=== PATIENT | female | born 1935 | race Two or more races ===

== ENCOUNTER 2016-12-29 15:39 | Emergency (ER) | payer MEDICAID ==
[~2016-12-29] VITALS: Ht 142.2 cm; Wt 59.0 kg
[~2016-12-29 15:39] MED LIST: ACCUPRIL10 MG ORAL; ACTONEL35 MG ORAL; BENADRYL25 MG ORAL; HYDROCHLOROTHIA25 MG ORAL; LISINOPRIL10 MG ORAL; PREDNISONE20 MG ORAL; TYLENOL650 MG/20. ORAL
[2016-12-29 16:01] VITALS: BP 184/82
[2016-12-29] MEDS ORDERED: Enalaprilat 1.25mg/ml Inj IV ONE (16:15)
[2016-12-29 17:16] LABS: BASOPHILS % (AUTO) 0.8 % (0.0-2.0); EOSINOPHILS % (AUTO) 0.9 % (0.0-3.0); MEAN CORPUSCULAR HEMOGLOBIN 32.5 PG (27.0-31.0); MEAN CORPUSCULAR VOLUME 90 FL (80-99); MEAN PLATELET VOLUME 7.5 FL (6.5-10.1); MONOCYTES % (AUTO) 4.4 % (1.0-10.0); NEUTROPHILS % (AUTO) 70.9 % (45.0-75.0); PLATELET COUNT 221 K/UL (150-450); RED BLOOD COUNT 4.03 M/UL (4.20-5.40); RED CELL DISTRIBUTION WIDTH 11.2 % (11.6-14.8)
[2016-12-29 17:41] LABS: TROPONIN I < 0.30 ng/mL (<=0.30)
[2016-12-29 17:46] LABS: ALANINE AMINOTRANSFERASE 15 U/L (3-33); ALBUMIN/GLOBULIN RATIO 1.4 (1.0-2.7); ANION GAP 13 (5-15); ASPARTATE AMINO TRANSFERASE 17 U/L (5-40); CALCIUM 9.5 mg/dL (8.6-10.2); CARBON DIOXIDE 28 mEQ/L (20-30); CHLORIDE 100 mEQ/L (98-107); CREATININE 0.7 mg/dL (0.5-0.9); HEMOLYSIS 13; POTASSIUM 3.8 mEQ/L (3.4-4.9); SODIUM 141 mEQ/L (135-145); TOTAL PROTEIN 6.8 g/dL (6.6-8.7)
[2016-12-29 17:56] LABS: CKMB 3.2 ng/mL (< 3.8)
[2016-12-29] MEDS ORDERED: HYDROCHLOROTHIA50 MG ORAL (18:19)
[2016-12-29 18:39] VITALS: BP 130/92
[2016-12-29 18:41] VITALS: BP 130/92
--- NOTE | 2016-12-29 21:46 | Emergency Room Report ---
History of Present Illness General Chief Complaint: Hypertension Source: Patient Present Illness HPI The patient is an 81-year-old female with a history of hypertension presenting for hypertension. The patient states that she usually takes hydrochlorothiazide which helps. She took her blood pressure this morning which was approximately 170/110 and then took her blood pressure medication and presented to the ER. She states that she has been taking her blood pressure medication as directed. She has not seen her PMD recently. She does admit to mild nausea and dizziness but denies any other symptoms including chest pain, shortness of breath, abdominal pain, weakness, diaphoresis, headache Allergies: Coded Allergies: No Known Allergies (Verified Allergy, Unknown, 09/13/07) Patient History Past Medical History: see triage record, HTN Pertinent Family History: none Reviewed Nursing Documentation: PMH: Agreed, PSxH: Agreed Nursing Documentation-PMH Past Medical History: No Stated History Hx Cardiac Problems: Yes Hx Hypertension: Yes Hx Asthma: No - osteoporosis Hx Cancer: No Hx Gastrointestinal Problems: No Hx Neurological Problems: No Review of Systems All Other Systems: negative except mentioned in HPI Physical Exam Vital Signs Date Time Temp Pulse Resp B/P Pulse Ox O2 Delivery O2 Flow Rate FiO2 12/29/16 15:52 98.1 62 16 171/77 97 Room Air Sp02 EP Interpretation: reviewed, normal General Appearance: no apparent distress, alert, GCS 15, non-toxic Head: normocephalic, atraumatic Eyes: bilateral eye PERRL, bilateral eye normal inspection ENT: hearing grossly normal, normal pharynx, no angioedema, normal voice Neck: full range of motion, supple/symm/no masses Respiratory: chest non-tender, lungs clear, normal breath sounds, speaking full sentences Cardiovascular #1: regular rate, rhythm, no edema Gastrointestinal: normal bowel sounds, non tender, soft, non-distended, no guarding, no rebound Genitourinary: normal inspection, no CVA tenderness Musculoskeletal: back normal, gait/station normal, normal range of motion, non- tender Neurologic: alert, oriented x3, responsive, motor strength/tone normal, sensory intact, normal gait, speech normal Psychiatric: judgement/insight normal, memory normal, mood/affect normal, no suicidal/homicidal ideation Skin: normal color, no rash, warm/dry, well hydrated Lymphatic: no adenopathy Medical Decision Making PA Attestation Dr. Vora is my supervising physician. Patient management was discussed with my supervising physician Diagnostic Impression: Primary Impression: Hypertension Qualified Codes: I15.9 - Secondary hypertension, unspecified ER Course The patient is an 81-year-old female with a history of hypertension presenting for hypertension. Differential diagnosis include but not limited to ACS, PE,CHF, pneumonia, gastritis, hypertensive urgency/emergency PE: Pt is initially hypertensive but all vitals WNL at time of DC PERRL. EOMI. Normal mentation. RRR. No MRG Lungs CTA bilat Abdomen: Normal appearance. Non distended. No ecchymosis. Normal BS. Non TTP. No McBurney point tenderness. No guarding. Skin is warm and dry, no rashes. EKG and CXR unremarkable. Labwork unremarkable. Pt is given vasotec and BP is now within normal limits. She will be DC'ed and is told she needs to keep a BP journal and see her PMD DENISE for possible HTN medication change. ER precautions given Laboratory Tests Test 12/29/16 16:50 White Blood Count 6.0 K/UL (4.8-10.8) Red Blood Count 4.03 M/UL (4.20-5.40) L Hemoglobin 13.1 G/DL (12.0-16.0) Hematocrit 36.4 % (37.0-47.0) L Mean Corpuscular Volume 90 FL (80-99) Mean Corpuscular Hemoglobin 32.5 PG (27.0-31.0) H Mean Corpuscular Hemoglobin Concent 36.0 G/DL (32.0-36.0) Red Cell Distribution Width 11.2 % (11.6-14.8) L Platelet Count 221 K/UL (150-450) Mean Platelet Volume 7.5 FL (6.5-10.1) Neutrophils (%) (Auto) 70.9 % (45.0-75.0) Lymphocytes (%) (Auto) 23.0 % (20.0-45.0) Monocytes (%) (Auto) 4.4 % (1.0-10.0) Eosinophils (%) (Auto) 0.9 % (0.0-3.0) Basophils (%) (Auto) 0.8 % (0.0-2.0) Sodium Level 141 mEQ/L (135-145) Potassium Level 3.8 mEQ/L (3.4-4.9) Chloride Level 100 mEQ/L (98-107) Carbon Dioxide Level 28 mEQ/L (20-30) Anion Gap 13 (5-15) Blood Urea Nitrogen 14 mg/dL (7-23) Creatinine 0.7 mg/dL (0.5-0.9) Estimate Glomerular Filtration Rate mL/min (>60) Glucose Level 111 mg/dL (74-106) H Calcium Level 9.5 mg/dL (8.6-10.2) Total Bilirubin 0.4 mg/dL (0.0-1.2) Aspartate Amino Transferase (AST) 17 U/L (5-40) Alanine Aminotransferase (ALT) 15 U/L (3-33) Alkaline Phosphatase 52 U/L (35-104) Total Creatine Kinase 44 U/L (26-140) Creatine Kinase MB 3.2 ng/mL (< 3.8) Creatine Kinase MB Relative Index 7.2 Troponin I < 0.30 ng/mL (<=0.30) Total Protein 6.8 g/dL (6.6-8.7) Albumin 4.0 g/dL (3.5-5.2) Globulin 2.8 g/dL Albumin/Globulin Ratio 1.4 (1.0-2.7) Lab Results Impression CBC, CMP, CKMB, and troponin all unremarkable. EKG Diagnostic Results EP Interpretation: NSR. No acute changes Rate: normal - 84 Rhythm: NSR ST Segments: no acute changes ASA given to the pt in ED: No PA Scribe Text EKG was reviewed and read with my supervising physician. No acute ST segment changes are seen. Normal rate and rhythm. No acute changes. Chest X-Ray Diagnostic Results EP Interpretation: Yes Findings: no consolidation, no effusion, no pneumothorax Number of Views: 1 PA Scribe Text I am acting as scribe for my supervising physician. My supervising physician's interpretation of the chest xrays are there is no consolidation, no effusion, no acute cardiopulmonary disease, no pneumothorax Last Vital Signs Date Time Temp Pulse Resp B/P Pulse Ox O2 Delivery O2 Flow Rate FiO2 12/29/16 18:41 67 18 130/92 99 Room Air 12/29/16 18:39 97.8 Status: improved Disposition: HOME, SELF-CARE Condition: Improved Scripts Hydrochlorothiazide* (HYDROCHLOROTHIAZIDE*) 50 Mg Tablet 50 MG ORAL DAILY, #30 TAB Prov: PAWAN DAVIS 12/29/16 Referrals: NON PHYSICIAN (PCP) Patient Instructions: Managing Your High Blood Pressure Additional Instructions: I discussed my findings with the patient. All questions and concerns have been answered. Treatment and medication compliance have been addressed. I advised the patient that they need to follow up with PMD in 3-5 days. Return to ED if symptoms worsen, new symptoms arise, or if needed for any reason. Patient verbalized understanding of discharge instructions. PAWAN DAVIS Dec 29, 2016 21:46
--- NOTE | 2016-12-30 09:41 | Diagnostic Imaging Report ---
Indication: DIZZY Technique: One view of the chest Comparison: 09/06/2015 Findings: Lungs and pleural spaces are clear. Heart size is normal. Inspiration is suboptimal. No significant change Impression: No acute process
== END 2016-12-29 18:46 | disposition home or self-care (01) ==
LOC: EMR 18:01
DX: I15.9 Secondary hypertension, unspecified (principal); M81.0 Age-related osteoporosis without current pathological fracture
CPT/HCPCS: 36415; 71010; 80053; 82550; 82553; 84484; 85025; 93005; 99283

== ENCOUNTER 2018-02-18 11:12 | Emergency (ER) | payer MEDICAID ==
[~2018-02-18] VITALS: Ht 147.3 cm; Wt 49.4 kg
[~2018-02-18 11:12] MED LIST changes: +HYDROCHLOROTHIA50 MG ORAL
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
[2018-02-18 12:00] LABS: BASOPHILS % (AUTO) 0.6 % (0.0-2.0); HEMATOCRIT 35.6 % (37.0-47.0); HEMOGLOBIN 11.8 G/DL (12.0-16.0); LYMPHOCYTES % (AUTO) 14.2 % (20.0-45.0); MEAN CORPUSCULAR VOLUME 91 FL (80-99); MONOCYTES % (AUTO) 4.6 % (1.0-10.0); NEUTROPHILS % (AUTO) 79.7 % (45.0-75.0); PLATELET COUNT 264 K/UL (150-450); RED BLOOD COUNT 3.92 M/UL (4.20-5.40); RED CELL DISTRIBUTION WIDTH 10.8 % (11.6-14.8); WHITE BLOOD COUNT 8.5 K/UL (4.8-10.8)
[2018-02-18 12:10] LABS: ANION GAP 9 mmol/L (5-15); BLOOD UREA NITROGEN 28 mg/dL (7-18); CALCIUM 9.1 MG/DL (8.5-10.1); CARBON DIOXIDE 27 MMOL/L (21-32); CHLORIDE 101 MMOL/L (98-107); CREATININE 0.8 MG/DL (0.55-1.30); POTASSIUM 4.4 MMOL/L (3.5-5.1); SODIUM 137 MMOL/L (136-145)
[2018-02-18 13:00] VITALS: BP 143/63
--- NOTE | 2018-02-18 13:11 | Diagnostic Imaging Report ---
Indications: Pain Technique: Spiral acquisitions obtained through the brain. Angled axial and coronal 5 x 5 mm slices were reconstructed. Total dose length product 1567.08 mGycm. CTDI vol(s) 70.38,10.94 mGy. Dose reduction achieved using automated exposure control Comparison: 01/01/2014 Findings: There is a high parietal scalp contusion just to the right of midline. Again demonstrated is age-related enlargement of the ventricles and extra-axial CSF spaces. No acute intracranial hemorrhage or edema. No mass effect or midline shift. Normal thibodeaux-white differentiation. There is evidence of prior bilateral cataract surgery. There is a right maxillary sinus air-fluid level. Impression: Chronic and age-related changes. Evidence of high parietal scalp contusion Negative for acute intracranial bleed or mass effect The CT scanner at [facility] is accredited by the [employer] and the scans are performed using protocols designed to limit radiation exposure to as low as reasonably achievable to attain images of sufficient resolution adequate for diagnostic evaluation.
[2018-02-18] MEDS ORDERED: TYLENOL325 MG ORAL (13:20)
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
[2018-02-18 13:29] VITALS: BP 143/63
[2018-02-19] MEDS ORDERED: BACTROBAN CR1 APPLIC TOPIC (17:30)
== END 2018-02-18 13:30 | disposition home or self-care (01) ==
LOC: EMR 11:43
DX: S09.90XA Unspecified injury of head, initial encounter (principal); S01.01XA Laceration without foreign body of scalp, initial encounter; V03.99XA Pedestrian with other conveyance injured in collision with car, pick-up truck or van, unspecified whether traffic or nontraffic accident, initial encounter; Y92.410 Unspecified street and highway as the place of occurrence of the external cause; I10 Essential (primary) hypertension; M81.0 Age-related osteoporosis without current pathological fracture
CPT/HCPCS: 12002; 36415; 70450; 72125; 80048; 85025; 99284; Z7502

== ENCOUNTER 2018-02-19 16:02 | Emergency (ER) | payer MEDICAID ==
[~2018-02-19] VITALS: Ht 154.9 cm; Wt 49.4 kg
[~2018-02-19 16:02] MED LIST changes: +TYLENOL325 MG ORAL
[2018-02-19 17:17] VITALS: BP 133/72
--- NOTE | 2018-02-19 17:27 | Emergency Room Report ---
History of Present Illness General Chief Complaint: Wound Recheck/Suture Removal Present Illness HPI 83 y.o. F with no sig pmhx, here for wound check post staple placement on scalp yesterday. pt reports bleeding from wound, continous CHOUDHARY(no worse than yesterday) . pt denies picking on the carlos alberto, combing over the carlos alberto. denies dizziness, loc, vision changes, neck pain, sob, palpitaiton, cp. reports the bleeding has been minimal Allergies: Coded Allergies: No Known Allergies (Verified , 09/13/07) Patient History Limited by: language barrier Past Medical History: see triage record Past Surgical History: none Pertinent Family History: none Now: No Immunizations: UTD Reviewed Nursing Documentation: PMH: Agreed; PSxH: Agreed Nursing Documentation-PMH Hx Cardiac Problems: Yes Hx Hypertension: Yes Hx Asthma: No - osteoporosis Hx Cancer: No Hx Gastrointestinal Problems: No Hx Neurological Problems: No Review of Systems All Other Systems: negative except mentioned in HPI Physical Exam Vital Signs Date Time Temp Pulse Resp B/P (MAP) Pulse Ox O2 Delivery O2 Flow Rate FiO2 02/19/18 16:09 97.7 71 16 133/72 95 Room Air 97.7 Sp02 EP Interpretation: reviewed, normal General Appearance: normal inspection, well appearing Head: normocephalic, other - 3 carlos alberto on posterior scalp one staple dislodged , minimal bleeding from lac, lac closed Eyes: bilateral eye normal inspection, bilateral eye PERRL ENT: normal ENT inspection, hearing grossly normal, normal pharynx Neck: normal inspection, full range of motion, supple Respiratory: normal inspection, chest non-tender, lungs clear, no rhonchi Cardiovascular #1: normal inspection, normal peripheral pulses, no edema, no gallop, no murmur Gastrointestinal: normal inspection, soft Rectal: deferred Genitourinary: deferred Musculoskeletal: normal inspection, back normal Neurologic: normal inspection, alert, oriented x3, responsive, fisherman helper III-XII nml as tested, motor strength/tone normal Psychiatric: normal inspection, judgement/insight normal, memory normal Skin: normal inspection, normal color, warm/dry, other - lac repair and minimal bleeding in scalp Lymphatic: normal inspection, no adenopathy Procedures Laceration/Wound Repair Laceration/Wound Repair : Consent: Verbal Wound Location: head Wound's Depth, Shape: superficial Betadine Prep?: No Patient Tolerated: Well Additional Procedure Procedure Narrative wound cleaning: lac repair on scalp was done one day ago, pt c/o bleeding from lac repair, one staple is misplaced, minimal superficial bleeding, wound cleaned with alcohol and dressing was applied Medical Decision Making PA Attestation all tx, dx, orders reviewed and discussed with my supervising physician Dr Howell Diagnostic Impression: Primary Impression: Encounter for wound re-check Additional Impression: Bleeding from wound ER Course 83 y.o. F with no sig pmhx, here for wound check post staple placement on scalp yesterday. pt reports bleeding from wound, continous CHOUDHARY(no worse than yesterday) . pt denies picking on the carlos alberto, combing over the carlos alberto. denies dizziness, loc, vision changes, neck pain, sob, palpitaiton, cp. reports the bleeding has been minimal Ddx considered but are not limited to bleeding lac, new head injury Vital signs: are WNL, pt. is afebrile H&PE are most consistent with bleeding lac ORDERS: none required at this time, the diagnosis is clinical ED INTERVENTIONS: wound cleaning with alcohol and dressing Last Vital Signs Date Time Temp Pulse Resp B/P (MAP) Pulse Ox O2 Delivery O2 Flow Rate FiO2 02/19/18 17:17 97.7 71 16 133/72 95 Room Air 97.7 Disposition: HOME, SELF-CARE Condition: Stable Scripts Mupirocin Calcium (Bactroban) 15 Gm Cream..g. 1 APPLIC TOPIC THREE TIMES A DAY for 7 Days, #1 TUBE Prov: Sultana Sumner 02/19/18 Patient Instructions: Wound Check Additional Instructions: avoid combing over carlos alberto, apply abx ointment as directed, change dressing, take tylenol prn for headache, follow up with PCP. if dizziness, vision changes , return to clinic. Sultana Sumner Feb 19, 2018 17:27
[2018-02-19] MEDS ORDERED: BACTROBAN CR1 APPLIC TOPIC (17:30)
[2018-02-19 17:34] VITALS: BP 133/72
== END 2018-02-19 17:59 | disposition home or self-care (01) ==
LOC: EMR 16:30
DX: L76.22 Postprocedural hemorrhage of skin and subcutaneous tissue following other procedure (principal); Y83.8 Other surgical procedures as the cause of abnormal reaction of the patient, or of later complication, without mention of misadventure at the time of the procedure; Y92.9 Unspecified place or not applicable; R51 Headache; I10 Essential (primary) hypertension; M81.0 Age-related osteoporosis without current pathological fracture
CPT/HCPCS: 12001; 99283; Z7502

== ENCOUNTER 2018-03-07 23:06 | Emergency (ER) | payer MEDICAID ==
[~2018-03-07] VITALS: Ht 149.9 cm; Wt 49.9 kg
[~2018-03-07 23:06] MED LIST changes: +BACTROBAN CR1 APPLIC TOPIC
[2018-03-07 23:56] VITALS: BP 142/68
[2018-03-08 00:06] VITALS: BP 142/68
--- NOTE | 2018-03-08 04:52 | Emergency Room Report ---
History of Present Illness General Chief Complaint: Headache Source: Patient, Family Member Present Illness HPI 83-year-old female presents ED for evaluation. Daughter at bedside states that patient complaining of headache and high blood pressure evening. She states headache has resolved upon arrival. Denies any neck stiffness. Denies any fevers chills. Denies dizziness. Blood pressure in triage 148/63. Denies chest pain or shortness of breath. States she is compliant with her medications. No other aggravating relieving factors. Denies any other associated symptoms Allergies: Coded Allergies: No Known Allergies (Verified , 09/13/07) Patient History Past Medical History: HTN Past Surgical History: none Pertinent Family History: none Social History: Denies: smoking, alcohol use, drug use Last Menstrual Period: n/a Now: No Immunizations: UTD Reviewed Nursing Documentation: PMH: Agreed; PSxH: Agreed Nursing Documentation-PMH Past Medical History: No History, Except For Hx Cardiac Problems: Yes Hx Hypertension: Yes Hx Asthma: No - osteoporosis Hx Cancer: No Hx Gastrointestinal Problems: No Hx Neurological Problems: No Review of Systems All Other Systems: negative except mentioned in HPI Physical Exam Vital Signs Date Time Temp Pulse Resp B/P (MAP) Pulse Ox O2 Delivery O2 Flow Rate FiO2 03/07/18 23:38 97.7 68 20 148/63 97 Room Air 97.7 Sp02 EP Interpretation: reviewed, normal General Appearance: no apparent distress, alert, GCS 15, non-toxic Head: normocephalic, atraumatic Eyes: bilateral eye normal inspection, bilateral eye PERRL ENT: hearing grossly normal, normal pharynx, no angioedema, normal voice Neck: full range of motion, supple/symm/no masses Respiratory: chest non-tender, lungs clear, normal breath sounds, speaking full sentences Cardiovascular #1: regular rate, rhythm, no edema Cardiovascular #2: 2+ carotid (R), 2+ carotid (L), 2+ radial (R), 2+ radial (L) , 2+ dorsalis pedis (R), 2+ dorsalis pedis (L) Gastrointestinal: normal bowel sounds, non tender, soft, non-distended, no guarding, no rebound Rectal: deferred Genitourinary: normal inspection, no CVA tenderness Musculoskeletal: back normal, gait/station normal, normal range of motion, non- tender Neurologic: alert, oriented x3, responsive, motor strength/tone normal, sensory intact, speech normal Psychiatric: judgement/insight normal, memory normal, mood/affect normal, no suicidal/homicidal ideation Reflexes: 3+ bicep (R), 3+ bicep (L), 3+ tricep (R), 3+ tricep (L), 3+ knee (R) , 3+ knee (L) Skin: normal color, no rash, warm/dry, well hydrated Lymphatic: no adenopathy Medical Decision Making Diagnostic Impression: Primary Impression: HTN (hypertension) Qualified Codes: I10 - Essential (primary) hypertension ER Course Hospital Course 83-year-old female presents ED complaining of elevated BP, headache Differential diagnoses include: hypertensive urgency, hypertensive emergency, arrythmia, RI/ACS Clinical course Patient placed on stretcher. After initial history, physical exam reveals a elderly female in no acute distress. There is no focal neurological deficit. No nuchal rigidity. Remainder physical exam unremarkable. Patient resting comfortably. Blood pressure 140s over 60s. Reassurance given to the patient and daughter. I reviewed EMR patient has been here multiple times for similar presentation. Patient documents history of anxiety. I offered workup but patient/daughter agrees that patient can be safely discharged to home. I. I feel this is a highly complex case requiring extensive working including EKG/Rhythm strip, Xray/CT/US, Blood/urine lab work, repeat exams while in ED, and administration of strong opiates/narcotics for pain control, admission to hospital or close patient follow up. Diagnosis - hypertension Stable and discharged to home. Instructed to followup with PMD. Return to ED if symptoms recur or worsen Last Vital Signs Date Time Temp Pulse Resp B/P (MAP) Pulse Ox O2 Delivery O2 Flow Rate FiO2 03/08/18 00:06 97.7 69 16 142/68 97 Room Air 97.7 Status: improved Disposition: HOME, SELF-CARE Condition: Stable Referrals: NON PHYSICIAN (PCP) Patient Instructions: Hypertension, [id number] Juventino Newton MD Mar 08, 2018 04:52
== END 2018-03-08 00:06 | disposition home or self-care (01) ==
LOC: EMR 23:46
DX: I10 Essential (primary) hypertension (principal); R51 Headache; M81.0 Age-related osteoporosis without current pathological fracture
CPT/HCPCS: 99283

== ENCOUNTER 2019-05-16 12:09 | Emergency (ER) | payer MEDICAID, OTHER ==
[~2019-05-16] VITALS: Ht 144.8 cm; Wt 50.3 kg
[2019-05-16 12:30] VITALS: BP 166/77
--- NOTE | 2019-05-16 12:40 | NUR ---
ED Nurse Note: Pt walked in and wants bp checked as she has a headache x 3 hours. Pt is AOO x4, VSS, with no acute distress. Family at bed side.
--- NOTE | 2019-05-16 13:09 | Emergency Room Report ---
History of Present Illness General Chief Complaint: Headache Source: Patient, Family Member Present Illness HPI 84-year-old female presents to the emergency department complaining of 8 out of 10 severity dull constant headache x3 hours this morning. Patient also reports she had the same headache yesterday as well. Patient with history of high blood pressure she states that her blood pressure has been running slightly high lately and the bottom number has been around 106 209. Patient is taking lisinopril and hydrochlorothiazide. Patient denies chest pain, SOB, palpitations, dizziness, syncope, near syncope, visual changes, weakness or imbalance. Patient is concerned that she needs medication adjustment. Patient denies nausea or vomiting. Patient states at this time her pain is 0 she states the headache went away on its own she did not take any medications for her headache. She denies abdominal pain or tenderness. No other aggravating or relieving factors patient is otherwise healthy only significant past medical history is high blood pressure and high cholesterol. Allergies: Coded Allergies: No Known Allergies (Verified , 09/13/07) Patient History Past Medical History: see triage record Past Surgical History: none Pertinent Family History: none Last Menstrual Period: na Now: No Reviewed Nursing Documentation: PMH: Agreed; PSxH: Agreed Nursing Documentation-PMH Past Medical History: No History, Except For Hx Cardiac Problems: Yes Hx Hypertension: Yes Hx Asthma: No - osteoporosis Hx Cancer: No Hx Gastrointestinal Problems: No Hx Neurological Problems: No Review of Systems All Other Systems: negative except mentioned in HPI Physical Exam Vital Signs Date Time Temp Pulse Resp B/P (MAP) Pulse Ox O2 Delivery O2 Flow Rate FiO2 05/16/19 12:24 98.1 67 20 166/77 (106) 98 Room Air Sp02 EP Interpretation: reviewed, normal General Appearance: no apparent distress, alert, GCS 15, non-toxic Head: normocephalic, atraumatic Eyes: bilateral eye normal inspection, bilateral eye PERRL ENT: hearing grossly normal, normal voice Neck: full range of motion Respiratory: lungs clear, normal breath sounds, speaking full sentences Cardiovascular #1: regular rate, rhythm, no edema Gastrointestinal: non tender, soft Genitourinary: normal inspection, no CVA tenderness Musculoskeletal: back normal, gait/station normal, normal range of motion, non- tender Neurologic: alert, oriented x3, responsive, motor strength/tone normal, sensory intact, normal gait, speech normal, grossly normal Psychiatric: judgement/insight normal Skin: no rash Medical Decision Making PA Attestation Dr. Irizarry is my supervising physician whom pt. management has been discussed with. Diagnostic Impression: Primary Impression: Elevated blood pressure reading Additional Impression: Headache Qualified Codes: R51 - Headache ER Course 84-year-old female presents to the emergency department complaining of 8 out of 10 severity dull constant headache x3 hours this morning. Patient also reports she had the same headache yesterday as well. Patient with history of high blood pressure she states that her blood pressure has been running slightly high lately and the bottom number has been around 106 209. Patient is taking lisinopril and hydrochlorothiazide. Patient denies chest pain, SOB, palpitations, dizziness, syncope, near syncope, visual changes, weakness or imbalance. Patient is concerned that she needs medication adjustment. Patient denies nausea or vomiting. Patient states at this time her pain is 0 she states the headache went away on its own she did not take any medications for her headache. She denies abdominal pain or tenderness. No other aggravating or relieving factors patient is otherwise healthy only significant past medical history is high blood pressure and high cholesterol. Ddx considered but are not limited to hypertensive urgency/emergency, aortic dissection, CVA,ICH, UTI just to name a few. Vital signs: are WNL, pt. is afebrile H&PE are most consistent with benign elevated BP reading without evidence of endstage organ symptoms/ acute damage. No focal neurological deficits.Pt. is NAD , non-Toxic in appearance. ORDERS: -UA: WNL ED INTERVENTIONS: None required at this time. I discussed with this patient that is very important to check blood pressure regularly at home and write down the results/keep a log. Discussed with patient she needs to follow-up with her primary care provider and bring the log of her blood pressure readings so that her provider can determine if any necessary changes in medications need to be made. Pt is given strict ED return precautions. DISCHARGE: At this time pt. is stable for d/c to home. Will provide printed patient care instructions, and any necessary prescriptions. Care plan and follow up instructions have been discussed with the patient prior to discharge. Labs Test 05/16/19 12:30 Urine Color Pale yellow Urine Appearance Clear Urine pH 6 (4.5-8.0) Urine Specific Riggins 1.010 (1.005-1.035) Urine Protein Negative (NEGATIVE) Urine Glucose (UA) Negative (NEGATIVE) Urine Ketones Negative (NEGATIVE) Urine Blood Negative (NEGATIVE) Urine Nitrite Negative (NEGATIVE) Urine Bilirubin Negative (NEGATIVE) Urine Urobilinogen Normal MG/DL (0.0-1.0) Urine Leukocyte Esterase Negative (NEGATIVE) Last Vital Signs Date Time Temp Pulse Resp B/P (MAP) Pulse Ox O2 Delivery O2 Flow Rate FiO2 05/16/19 12:24 98.1 67 20 166/77 (106) 98 Room Air Disposition: HOME, SELF-CARE Condition: Stable Referrals: [facility] Patient Instructions: Form - Blood Pressure Record Sheet, How to Take Your Blood Pressure, [id number], Managing Your High Blood Pressure Additional Instructions: Take medications as directed. Follow up with a Primary Care Provider in 3-5 days, even if your symptoms have resolved. --Please review list of primary care clinics, if you do not already have a primary care provider Return sooner to ED if new symptoms occur, or current symptoms become worse. - Please note that this Emergency Department Report was dictated using [employer] technology software, occasionally this can lead to erroneous entry secondary to interpretation by the dictation equipment. Jackelyn Cha May 16, 2019 13:09
[2019-05-16 13:16] LABS: APPEARANCE,URINE CLEAR; BILIRUBIN, URINE NEGATIVE (NEGATIVE); COLOR,URINE PALE YELLOW; GLUCOSE, URINE (UA) NEGATIVE (NEGATIVE); KETONES,URINE NEGATIVE (NEGATIVE); LEUKOCYTE ESTERASE ,URINE NEGATIVE (NEGATIVE); NITRITE,URINE NEGATIVE (NEGATIVE); PH,URINE 6 (4.5-8.0); PROTEIN,URINE NEGATIVE (NEGATIVE); UROBILINOGEN,URINE NORMAL MG/DL (0.0-1.0)
[2019-05-16 13:39] VITALS: BP 166/77
--- NOTE | 2019-05-16 13:45 | NUR ---
ER DISCHARGE NOTE: Patient is cleared to be discharged per ERMD, pt is aox4, on room air, with stable vital signs. pt was given dc and prescription instructions, pt was able to verbalize understanding, pt id band and iv site removed without complications. pt is able to ambulate with steady gait. pt took all belongings. Pt left with family.
== END 2019-05-16 13:39 | disposition home or self-care (01) ==
LOC: EMR 12:50
DX: R51 Headache (principal); I10 Essential (primary) hypertension; M81.0 Age-related osteoporosis without current pathological fracture
CPT/HCPCS: 81003; Z7502; 99282